=== PATIENT | female | born 1975 | race Caucasian/White ===

== ENCOUNTER 2016-07-10 05:06 | Day surgery (SDC) | payer BC ==
[2016-07-08 15:09] LABS: BASOPHILS 0.2 % (0.0-2.0); EOSINOPHILS 0.2 % (0-7); HEMATOCRIT 39.4 % (36.0-48.0); HEMOGLOBIN 13.6 g/dL (12-16); IMMATURE GRANULOCYTES 0.4 % (0-5); LYMPHOCYTES 31.2 % (15-50); MCH 29.3 pg (26.0-34.0); MCHC 34.5 g/dL (31.0-37.0); MCV 84.9 fL (80.0-100.0); MEAN PLATELET VOLUME 10.1 fL (7.4-10.4); MONOCYTES 6.3 % (2-11); NEUTROPHILS 61.7 % (40-80); PLATELET COUNT 240 10x3/uL (130-400); RBC 4.64 10x6/uL (4.00-5.40); RDW 13.6 % (11.5-14.5); WBC 9.5 10x3/uL (4.8-10.8)
[2016-07-08 15:22] LABS: CALC OSMOLALITY 281 mosm/kg (275-300); CALCIUM 9.3 mg/dL (8.5-10.1); CARBON DIOXIDE 31.9 mmol/L (21.0-32.0); CHLORIDE - SERUM 104 mmol/L (98-107); CREATININE - SERUM 0.8 mg/dL (0.6-1.3); GLUCOSE 101 mg/dL (74-106); POTASSIUM - SERUM 4.3 mmol/L (3.5-5.1); SODIUM 142 mmol/L (136-145); UREA NITROGEN 11 mg/dL (7-18); eGFR NON AFRICAN AMERICAN 83 mL/min (90-120)
[~2016-07-10] VITALS: Ht 160 cm; Wt 104.3 kg
[2016-07-10 10:41] VITALS: BP 132/74; Ht 160 cm; Wt 104.3 kg
[2016-07-10] MEDS ORDERED: HYDROCODONE-APA1 TAB PO (13:59)
[2016-07-10] MEDS ORDERED: VIBRAMYCIN50 MG PO (14:00)
--- NOTE | 2016-07-10 15:28 | NUR ---
1510 LYING IN BED RESTING TAKING IN FULL LIQUIDS, RESP EVEN AND NONLABORED. RT UNDER SIDE BREAST C/D/I NO BLEEDING.ICE PACK APPLIED TI SITE.
--- NOTE | 2016-07-10 16:16 | NUR ---
1610 RT BREAST DRESSING C/D/INTACT NO BLEEDING ICE PACK TO SITE,NO NAUSEA OR PAIN.
--- NOTE | 2016-07-10 16:23 | NUR ---
1540 V/S TAKEN RT BREAST. NO BLEEDING NO PAIN.IV DCD CATHETER INTACT. DISCHARGE INSTRUCTIONS GIVEN AND VERBALLY UNDERSTANDS.
--- NOTE | 2016-07-10 16:24 | NUR ---
1545 TO HOME VIA W/C WITH FAMILY.
--- NOTE | 2016-07-14 13:46 | OP ---
PATIENT NAME: ALEXI HARPER MEDICAL RECORD: [id number] :71 LOCATION:[facility] ADMISSION DATE: SURGEON: NERI MERLOS MD DATE OF OPERATION: 07/10/2016 PREOPERATIVE DIAGNOSIS:. Sebaceous cyst of the right inferior breast. POSTOPERATIVE DIAGNOSIS: Sebaceous cyst on the right inferior breast. PROCEDURE: Excision of right inferior breast sebaceous cyst (2 cm). SURGEON: Neri Merlos MD REPORT OF PROCEDURE: The patient's right breast was prepped and draped in sterile fashion. A transverse incision was made on the inferior aspect of the patient's right breast overlying the cyst. As we penetrated through the subcutaneous tissues, we encountered the cyst along with the spillage of some sebum and murky appearing contents. Cultures were taken times 2. The cyst was then completely excised including some surrounding fatty tissue. We irrigated out the wound with peroxide and saline solution and then instilled the incision with a total of 10 mL of 0.25% Marcaine with epinephrine. The subcutaneous tissues were reapproximated with interrupted 3-0 Vicryl and the skin was closed with running subcutaneous 5-0 Monocryl. COMPLICATIONS: None. CONDITION: Stable. ANESTHESIA: General endotracheal and local. BLOOD LOSS: Minimal. TRANSINT:[id number] Voice Confirmation ID: [id number] DOCUMENT ID: [id number] NERI MERLOS MD at 1346 CC: SARBJIT LANDEROS MD [id number] DICTATION DATE: 07/10/16 1404 BEAUTY ADVISOR: 07/10/16 1726 [facility] 07/10/[address] [address]
[2016-07-29 16:13] LABS: AEROBE ID Final report (())
== END 2016-07-10 15:45 | disposition home or self-care (01) ==
LOC: D.OPS 05:06 → D.PAN 14:00 → D.OPS 15:45
PROVIDERS: Surgery
DX: N60.81 Other benign mammary dysplasias of right breast (principal)

== ENCOUNTER 2017-01-08 07:05 | Day surgery (SDC) | payer BC ==
[~2017-01-08] VITALS: Ht 160 cm; Wt 102.1 kg
--- NOTE | ~2017-01-08 | OP ---
PATIENT NAME: ALEXI HARPER MEDICAL RECORD: [id number] :71 LOCATION:[facility] ADMISSION DATE: SURGEON: NERI MERLOS MD OPERATION DATE: 01/08/17 DATE OF OPERATION: 01/08/2017 PREOPERATIVE DIAGNOSES: 1. Biliary dyskinesia. 2. Hypertension. POSTOPERATIVE DIAGNOSES: 1. Biliary dyskinesia. 2. Hypertension. PROCEDURE: Laparoscopic cholecystectomy. SURGEON: Neri Merlos MD REPORT OF PROCEDURE: The patient's abdomen was prepped and draped in sterile fashion. A cutdown was made on the superior aspect of the umbilicus, 0 Vicryls were placed in the fascia bilaterally and the fascia was incised with 15-blade. I then bluntly entered the peritoneal cavity and placed a 12-mm Hardy port. Under direct visualization, a 5-mm trocar was placed in the epigastrium and 2 more 5-mm trocars were placed in the right subcostal region. The gallbladder was grasped and elevated. There was just some mild inflammatory changes near the infundibulum. These were teased down carefully with blunt dissection. The cystic artery and cystic duct were dissected free and these were clipped proximally and distally and ligated in standard fashion. The gallbladder was taken off the liver bed using electrocautery and placed in the right upper quadrant. Any bleeding from the liver bed was then treated with electrocautery. We irrigated out the right upper quadrant to assure there was no sign of any bleeding or bile leakage. At this point, the ports and insufflation were then removed and the gallbladder was taken out through the umbilicus. The umbilical fascia was closed with interrupted 0 Vicryls times 3. The wounds were irrigated out with normal saline and infused with 10 mL of 0.25% Marcaine with epinephrine. The skin incisions were closed with subcutaneous 5-0 Monocryl and dressed appropriately. COMPLICATIONS: None. CONDITION: Stable. ANESTHESIA: General endotracheal and local. BLOOD LOSS: Minimal. TRANSINT:[id number] Voice Confirmation ID: [id number] DOCUMENT ID: [id number] OPERATIVE REPORT [id number] ALEXI HARPER NERI MERLOS MD CC: SARBJIT LANDEROS MD [id number] DICTATION DATE: 01/08/17 1123 MANAGER ER: 01/08/17 1653 [facility] 01/08/17 [facility] [address] [place] [address]
[~2017-01-08 07:05] MED LIST: CYMBALTA60 MG PO; HYDROCODONE-APA1 TAB PO; VIBRAMYCIN50 MG PO
[2017-01-08 07:54] LABS: CALC OSMOLALITY 275 mosm/kg (275-300); CALCIUM 8.7 mg/dL (8.5-10.1); CARBON DIOXIDE 27.6 mmol/L (21.0-32.0); CHLORIDE - SERUM 104 mmol/L (98-107); CREATININE - SERUM 0.6 mg/dL (0.6-1.3); GLUCOSE 110 mg/dL (74-106); POTASSIUM - SERUM 3.8 mmol/L (3.5-5.1); SODIUM 138 mmol/L (136-145); UREA NITROGEN 11 mg/dL (7-18); eGFR NON AFRICAN AMERICAN > 90 mL/min (90-120)
[2017-01-08 08:19] VITALS: BP 133/62; Ht 160 cm; Wt 102.1 kg
[2017-01-08 08:36] LABS: BASOPHILS 0.3 % (0-2); EOSINOPHILS 1.3 % (0-7); HEMATOCRIT 37.8 % (36.0-48.0); HEMOGLOBIN 12.7 g/dL (12-16); IMMATURE GRANULOCYTES 0.1 % (0-5); LYMPHOCYTES 35.3 % (15-50); MCH 29.3 pg (26.0-34.0); MCHC 33.6 g/dL (31.0-37.0); MCV 87.1 fL (80.0-100.0); MEAN PLATELET VOLUME 10.2 fL (7.4-10.4); MONOCYTES 7.2 % (2-11); NEUTROPHILS 55.8 % (40-80); PLATELET COUNT 249 10x3/uL (130-400); RBC 4.34 10x6/uL (4.00-5.40); RDW 13.3 % (11.5-14.5)
[2017-01-08] MEDS ORDERED: HYDROCODONE-APA1 TAB PO (11:19)
--- NOTE | 2017-01-08 15:27 | NUR ---
1500-PT VOIDED, IV DC'D. JANE RN [id number]--DISCHARGE INSTRUCTIONS GIVEN, PT VERBALIZES UNDERSTANDING. PT OFF UNIT VIA WC. JANE POZO
== END 2017-01-08 15:15 | disposition home or self-care (01) ==
LOC: D.OPS 07:05 → D.PAN 09:35 → D.OPS 12:45
PROVIDERS: Surgery
DX: K82.8 Other specified diseases of gallbladder (principal); I10 Essential (primary) hypertension; Z01.812 Encounter for preprocedural laboratory examination